=== PATIENT | female | born 1970 | race Caucasian/White ===

== ENCOUNTER → 2020-01-06 11:59 | Outpatient (CLI) | payer OTHER, SELFPAY ==
--- NOTE | ~2020-01-06 | XR_ITS ---
EXAMINATION: XR hip LT min 2V DATE: 01/06/2020 12:12 INDICATION: Left hip pain. TECHNIQUE: 2 views of left hip were obtained. COMPARISON: None. FINDINGS: Bone alignment is normal. No fracture. Left hip joint space is normal. IMPRESSION: 1. Normal left hip. Reviewed, dictated and finalized at location A. ESSION SUPERVISOR IMPRESSION: 1. Normal left hip.
== END ==
PROVIDERS: PCP Family Medicine; Visit Provider Physician Assistant
DX: M25.552 Pain in left hip (principal)
CPT/HCPCS: 73502

== ENCOUNTER 2020-06-18 12:00 | Emergency (ER) | payer OTHER, SELFPAY ==
--- NOTE | ~2020-06-18 | XR_ITS ---
EXAMINATION: XR chest 2V DATE: 06/18/2020 12:49 INDICATION: Tachycardia, arrhythmia TECHNIQUE: PA and lateral views of the chest are obtained. COMPARISON: None available FINDINGS: The lungs are free of acute opacities. There is no pleural effusion or pneumothorax. The ca rdiomediastinal silhouette is normal. The visualized bones and soft tissues are unremarkable. IMPRESSION: 1. No acute cardiopulmonary abnormality. Reviewed, dictated and finalized at location A.
[2020-06-18 12:13] VITALS: BP 114/85; PULSE 188; RESP 14; TEMP 37.1; O2SAT 100
[2020-06-18] MEDS: ADENOSINE IV SOLN 6 MG/2 ML VIAL 18 MG (12:16)
[2020-06-18] MEDS: SODIUM CHLORIDE 0.9% IV 1,000 ML 999 ML (12:16)
--- NOTE | 2020-06-18 12:20 | ECG_ITS ---
Measurements Intervals [place] Rate: 93 P: 81 IA: 174 QRS: 73 QRSD: 88 T: 55 QT: 356 QTc: 445 Interpretive Statements SINUS RHYTHM POSSIBLE LEFT ATRIAL ENLARGEMENT INCOMPLETE RIGHT BUNDLE BRANCH BLOCK BASELINE ARTIFACT- II, III, AVR, AVL, AVF, V2 BORDERLINE ECG Electronically Signed On 06-18-2020 17:15:35 CDT by Dung Dobson D.O.
--- NOTE | 2020-06-18 12:32 | PC.NURSE ---
Dr Ha at bedside when 6mg adenosine and 1L of normal saline given per verbal order for arrythmia
--- NOTE | 2020-06-18 12:42 | ECG_ITS ---
Measurements Intervals [place] Rate: 187 P: [place]: 0 QRS: 85 QRSD: 89 T: 26 QT: 234 QTc: 413 Interpretive Statements SUPRAVENTRICULAR TACHYCARDIA BORDERLINE ST ABNORMALITY- ANTEROLAT/INF LEADS ABNORMAL ECG Electronically Signed On 06-18-2020 13:31:35 CDT by Dung Dobson D.O.
[2020-06-18 12:59] LABS: Basophils Absolute Auto 0.1 K/mm3 (0.0-0.1); Basophils Percent Auto 0.4 % (0.2-1.2); Eosinophils Absolute Auto 0.1 K/mm3 (0-0.3); Eosinophils Percent Auto 0.8 % (0-4.4); Hematocrit 39.2 % (37.0-47.0); Hemoglobin 13.3 g/dL (12.0-15.0); Immature Granulocyte Absolute 0.04 K/mm3 (0.00-0.031); Immature Granulocyte Percent A 0.3 % (0-0.5); Lymphocytes Absolute Auto 1.98 K/mm3 (0.9-3.2); Mean Corpuscular HGB Conc 33.9 g/dl (32-36); Mean Corpuscular Hemoglobin 29.8 pg (26-34); Mean Corpuscular Volume 87.7 fl (80-100); Mean Platelet Volume 9.9 fl (7.4-10.4); Monocytes Absolute Auto 0.6 K/mm3 (0.1-0.6); Monocytes Percent Auto 4.8 % (2.6-8.5); Neutrophils Absolute Auto 8.9 K/mm3 (1.3-6.7); Neutrophils Percent Auto 76.7 % (45.5-73.1); Platelet Count Result 309 k/mm3 (150-375); Red Blood Count 4.47 M/mm3 (4.2-5.4); Red Cell Distribution Width 12.9 % (11.5-14.5); White Blood Count 11.7 K/mm3 (4.5-10.0)
[2020-06-18 13:14] LABS: Anion Gap 12.4 mmol/L (7-16); Blood Urea Nitrogen 15 mg/dL (7-17); Calcium 8.8 mg/dL (8.4-10.2); Carbon Dioxide 22 mmol/L (22-30); Chloride 101 mmol/L (98-107); Estimated CRCL calculation 78 ml/min; Estimated Glomerular Filt Rate > 60; Glucose 138 mg/dL (65-105); Potassium 3.4 mmol/L (3.4-5.0); Sodium 132 mmol/L (137-145)
[2020-06-18 13:16] LABS: Magnesium 1.6 mg/dL (1.6-2.3)
[2020-06-18 13:18] VITALS: BP 100/71; PULSE 96; RESP 13; O2SAT 100
[2020-06-18 13:47] LABS: Add Urine Microscopic? NO; Appearance Urine Clear (Clear); Bilirubin Urine Negative (Negative); Blood Urine Negative (Negative); Color Urine Colorless (Yellow); Glucose Urine UA Negative (Negative); Ketones Urine Negative (Negative); Leukocyte Esterase Ur Negative LEU/UL (Negative); Nitrate Urine Negative (Negative); Protein Urine Negative (Negative); Urobilinogen Urine Negative mg/dL (<2.0)
[2020-06-18 13:55] LABS: Specific Grav Ur 1.003 (1.001-1.035)
--- NOTE | 2020-06-18 13:57 | ED.ARRPALP ---
HPI - Arrhythmia/Palpitations General Chief Complaint: Arrhythmia/Palpitations Stated Complaint: rapid heart rate Time Seen by Provider: 06/18/20 12:20 History of Present Illness HPI narrative: Patient is a 50-year-old female who presents ER with heart palpitations. Sudden onset prior to arrival. Reports fluctuations in her heart rate from 70 up to 200 bpm when monitoring on her watch. No chest pain. Feels very anxious and slightly short of breath. Denies fevers or chills or sweats. Has not been taking any exercise supplementation, no known thyroid issues, no new stress. Reports she did get a little bit upset prior to onset of symptoms with the family member but it was not a big fight. Denies any stimulant medication or drinking caffeine today. Related Data Home Medications Medication Instructions Recorded Confirmed No Home Medications 06/18/20 06/18/20 Allergies Allergy/AdvReac Type Severity Reaction Status Date / Time No Known Allergies Allergy Verified 06/18/20 12:24 Review of Systems Review of Systems: All systems reviewed & are unremarkable except as noted in HPI and below Constitutional: Constitutional: Denies chills, Denies fever(s) and Denies weakness ENT: Denies nasal congestion and Denies sore throat Cardiovascular: Cardiovascular: Denies chest pain and Reports rapid heart rate Respiratory: Respiratory: Denies cough, Reports dyspnea and Denies wheezing Gastrointestinal: Gastrointestinal: Denies abdominal pain, Denies nausea and Denies vomiting Psychiatric: Psychiatric: Reports anxiety PMFSH Past Medical History Medical History (Updated 06/18/20 @ 15:05 by Oh Ha MD) Healthy female adult Surgical History Surgical History (Updated 06/18/20 @ 13:59 by Oh Ha MD) No history of previous surgery Social History Social History (Updated 06/18/20 @ 14:00 by Oh Ha MD) Smoking status: Never smoker Exam Narrative: Exam Narrative: GENERAL: Anxious-appearing, well-nourished, and in mild distress. HEAD: Normocephalic, atraumatic. ENT: Mucous membranes moist. CHEST: Clear to auscultation. No respiratory distress. HEART: Tachycardic and regular. Normal peripheral pulses. ABDOMEN: Soft, nontender, nondistended. EXTREMITIES: Normal range of motion. No edema. SKIN: Warm, dry, no rash. NEURO: Alert and oriented x3. PSYCH: Appropriately anxious, normal thought content. Course Course Emergency Course: Patient informed of lab results. Discussed case with Liz Jauregui. Recommends f/u with Dr. Solis on 06/25 a 1:30p. Pt verbalized understanding. No metoprolol per cardiology. Avoid caffiene. Vital Signs Vital signs: Vital Signs Temperature 98.8 F 06/18/20 12:13 Pulse Rate 188 H 06/18/20 12:13 Respiratory Rate 14 06/18/20 12:13 Blood Pressure 114/85 06/18/20 12:13 Pulse Oximetry 100 06/18/20 12:13 Temperature 98.8 F 06/18/20 12:13 Pulse Rate 95 06/18/20 14:09 Respiratory Rate 14 06/18/20 14:09 Blood Pressure 101/60 06/18/20 14:09 Pulse Oximetry 100 06/18/20 14:09 MDM - Arrhythmia/Palpitations Lab Data Result diagrams: 06/18/20 12:39 06/18/20 12:39 Labs: Lab Results 06/18/20 06/18/20 06/18/20 Range/Units 12:39 12:39 12:39 WBC 11.7 H (4.5-10.0) K/mm3 RBC 4.47 (4.2-5.4) M/mm3 Hgb 13.3 (12.0-15.0) g/dL Hct 39.2 (37.0-47.0) % MCV 87.7 (80-100) fl MCH 29.8 (26-34) pg MCHC 33.9 (32-36) g/dl RDW 12.9 (11.5-14.5) % Plt Count 309 (150-375) k/mm3 MPV 9.9 (7.4-10.4) fl Immature Gran % (Auto) 0.3 (0-0.5) % Neut % (Auto) 76.7 H (45.5-73.1) % Lymph % (Auto) 17.0 L (18.3-44.2) % [place] % (Auto) 4.8 (2.6-8.5) % Eos % (Auto) 0.8 (0-4.4) % Baso % (Auto) 0.4 (0.2-1.2) % Lymph # (Auto) 1.98 (0.9-3.2) K/mm3 [place] # (Auto) 0.6 (0.1-0.6) K/mm3 Eos # (Auto) 0.1 (0-0.3) K/mm3 Baso # (Auto) 0.1 (0.0-0.1)
[2020-06-18 14:09] VITALS: BP 101/60; PULSE 95; RESP 14; O2SAT 100
[2020-06-18 14:36] LABS: Free T4 Free Thyroxine Reflex 0.97 ng/dL (0.78-2.19)
[2020-06-18 15:21] VITALS: BP 97/58; PULSE 78; RESP 16; TEMP 36.6; O2SAT 100
[2020-06-18 15:37] LABS: Total Triiodothyronine (T3) 1.16 NG/ML (0.97-1.69)
== END 2020-06-18 15:23 | disposition home or self-care (01) ==
PROVIDERS: Emergency Provider Emergency Medicine; PCP Family Medicine
DX: I47.1 Supraventricular tachycardia (principal); I45.10 Unspecified right bundle-branch block; R94.31 Abnormal electrocardiogram [ECG] [EKG]
CPT/HCPCS: 36415; 71046; 80048; 81003; 83735; 84439; 84443; 84480; 85025; 93005; 99283; J0153; J7030

== ENCOUNTER → 2020-10-24 10:35 | Outpatient (CLI) | payer OTHER, SELFPAY ==
--- NOTE | ~2020-10-24 | MM_ITS ---
EXAMINATION: MM screening [facility] BI w hiral HISTORY: Screening TECHNIQUE: Craniocaudal and mediolateral oblique 3-D tomosynthesis images were obtained and synthetic 2-D images were generated. CAD analysis was submitted and interpreted. COMPARISON: Comparison to multiple prior studies sequentially, with oldest reviewed study dated 01/2014. BREAST PARENCHYMAL COMPOSITION: The breasts are extremely dense, which lowers the sensitivity of mamm ography FINDINGS: There is no evidence of suspicious mass, calcification, or architectural distortion to sugg est malignancy in either breast. There has been no suspicious interval change. IMPRESSION: 1. No mammographic evidence of malignancy. 2. Recommend routine screening mammography in one year. BI-RADS Category 1: Negative Reviewed, dictated and finalized at location A. STRIAL CONTROLLER
== END ==
PROVIDERS: Visit Provider Nurse Practitioner Obstetrics & Gynecology
DX: Z12.31 Encounter for screening mammogram for malignant neoplasm of breast (principal)
CPT/HCPCS: 77063; 77067

== ENCOUNTER → 2022-12-04 11:14 | Outpatient (CLI) | payer OTHER, SELFPAY ==
--- NOTE | ~2022-12-04 | MM_ITS ---
EXAMINATION: MM screening [facility] BI w hiral HISTORY: Screening mammogram TECHNIQUE: Craniocaudal and mediolateral oblique 3-D tomosynthesis images were obtained and synthetic 2-D images were generated. CAD analysis was submitted and interpreted. COMPARISON: 10/24/2020, 05/02/2019, 04/30/2018 BREAST PARENCHYMAL COMPOSITION: The breasts are extremely dense, which lowers the sensitivity of mamm ography. FINDINGS: No suspicious mass, calcification, or architectural distortion are identified in either geraldo ast to suggest malignancy. There has been no suspicious interval change. IMPRESSION: 1. No mammographic evidence of malignancy. 2. Recommend routine screening mammography in one year. BI-RADS Category 1: Negative Reviewed, dictated and finalized at location A. EM SAFETY MANAGER
== END ==
PROVIDERS: PCP Family Medicine; Visit Provider Nurse Practitioner Obstetrics & Gynecology
DX: Z12.31 Encounter for screening mammogram for malignant neoplasm of breast (principal)
CPT/HCPCS: 77063; 77067

== ENCOUNTER → 2023-06-30 10:17 | Outpatient (CLI) | payer OTHER, SELFPAY ==
--- NOTE | ~2023-06-30 | US_ITS ---
EXAMINATION: US abdomen complete DATE: 06/30/2023 10:44 INDICATION: Intra-abdominal and pelvic swelling. Bloating. TECHNIQUE: Multiple grayscale and Doppler ultrasound images of the abdomen were obtained. COMPARISON: None FINDINGS: The visualized portions of the head, body, and tail of the pancreas are normal. Abdominal a refugio is normal in caliber. Inferior vena cava is normal. The liver is normal without focal lesion. Th ere is normal flow in main portal vein. The liver is normal in size. No gallstones or gallbladder wal l thickening. There is no sonographic Perez sign. The common duct is normal and measures 3 mm. The s pleen is normal in size. The kidneys are normal in size. IMPRESSION: 1. Normal complete abdomen ultrasound. Reviewed, dictated and finalized at location A.
== END ==
PROVIDERS: PCP Physician Assistant; Visit Provider Physician Assistant
DX: R19.00 Intra-abdominal and pelvic swelling, mass and lump, unspecified site (principal)
CPT/HCPCS: 76700

== ENCOUNTER 2025-03-18 08:43 | Emergency (ER) | payer OTHER, SELFPAY ==
[2025-03-18] VITALS (12 sets, daily range): BP systolic 122–166; BP diastolic 74–93; PULSE 44–64; RESP 12–16; TEMP 36.6–36.8; O2SAT 98–100
--- NOTE | ~2025-03-18 | CT_ITS ---
EXAMINATION: CT brain wo con DATE: 03/18/2025 11:05 INDICATION: Headache TECHNIQUE: Computed tomography (CT) of the head was performed without intravenous contrast. Sagittal and coronal reconstructions were performed. The mA was adjusted according to patient size. Iterative reconstruction technique was employed. The dose-length product was 605.33 mGy-cm. COMPARISON: None FINDINGS: No acute intracranial hemorrhage, acute infarction or abnormal extra axial fluid collection. There is mild scattered white matter hypoattenuation consistent with chronic small vessel ischemic disease. Ventricles are normal and symmetric. No mass/mass effect. The orbits, paranasal sinuses and mastoid a ir cells are normal. IMPRESSION: 1. Mild scattered white matter hypoattenuation consistent with chronic small vessel ischemic disease. No acute intracranial process. Reviewed, dictated and finalized at location A. IMPRESSION: 1. Mild scattered white matter hypoattenuation consistent with chronic small ve ssel ischemic disease. No acute intracranial process.
--- NOTE | ~2025-03-18 | XR_ITS ---
EXAMINATION: XR chest 1V portable DATE: 03/18/2025 10:54 INDICATION: Chest pain TECHNIQUE: frontal view of the chest was obtained. COMPARISON: Chest radiograph dated 06/18/2020 FINDINGS: The lungs are clear with no focal airspace opacities, pulmonary edema, pleural effusion or pneumothor ax. The cardiomediastinal silhouette is normal. Visualized bones and soft tissues are unremarkable. IMPRESSION: 1. No acute cardiopulmonary disease. Reviewed, dictated and finalized at location A.
--- NOTE | 2025-03-18 08:49 | ECG_ITS ---
Test Date: 2025-03-18 08:58:20 Measurements Intervals [place] Rate: 46 P: 70 HI: 160 QRS: 75 QRSD: 101 T: 69 QT: 481 QTc: 423 Interpretive Statements SINUS BRADYCARDIA POSSIBLE RIGHT VENTRICULAR CONDUCTION DELAY [RSR (QR) IN V1/V2] No previous ECG available for comparison Electronically Signed On 03-18-2025 11:42:17 CDT by Bib Salazar M.D.
[2025-03-18 09:10] LABS: Add Urine Microscopic? YES; Appearance Urine Turbid (Clear); Bacteria Urine None Seen /hpf; Bilirubin Urine Negative (Negative); Blood Urine Negative (Negative); Color Urine Yellow (Yellow); Glucose Urine UA Negative (Negative); Ketones Urine Negative (Negative); Leukocyte Esterase Ur 1+ LEU/UL (Negative); Need Manual Microscopic Reviewed; Nitrate Urine Negative (Negative); Non Pathogenic Casts 0-2; Protein Urine Trace mg/dL (Negative); RBC Urine 0-2 /hpf (0-2); Squamous Epithelial Cell Urine Occasional /hpf (Few); Urobilinogen Urine 0.2 mg/dL (<2.0); WBC Urine 0-5 /hpf (0-3)
[2025-03-18 09:13] LABS: Basophils Percent Auto 0.4 % (0.2-1.2); Eosinophils Absolute Auto 0.1 K/mm3 (0-0.3); Eosinophils Percent Auto 1.1 % (0-4.4); Hematocrit 37.2 % (37.0-47.0); Hemoglobin 11.9 g/dL (12.0-15.0); Immature Granulocyte Absolute 0.02 K/mm3 (0.00-0.031); Immature Granulocyte Percent A 0.3 % (0-0.5); Lymphocytes Absolute Auto 1.73 K/mm3 (0.9-3.2); Lymphocytes Percent Auto 23.5 % (18.3-44.2); Mean Corpuscular Hemoglobin 29.5 pg (26-34); Mean Corpuscular Volume 92.1 fl (80-100); Mean Platelet Volume 9.8 fl (7.4-10.4); Monocytes Absolute Auto 0.5 K/mm3 (0.1-0.6); Monocytes Percent Auto 7.3 % (2.6-8.5); Neutrophils Percent Auto 67.4 % (45.5-73.1); Platelet Count Result 265 k/mm3 (150-375); Red Blood Count 4.04 M/mm3 (4.2-5.4); Red Cell Distribution Width 13.5 % (11.5-14.5); White Blood Count 7.4 K/mm3 (4.5-10.0)
[2025-03-18 09:24] LABS: Alanine Aminotransferase 30 U/L (6-35); Albumin Level 4.1 g/dL (3.5-5.1); Alkaline Phosphatase 86 U/L (38-126); Anion Gap 3 mmol/L (4-12); Aspartate Amino Transferase 33 U/L (14-36); Bilirubin,Total 0.9 mg/dL (0.2-1.3); Blood Urea Nitrogen 21 mg/dL (7-17); Calcium 8.8 mg/dL (8.4-10.2); Carbon Dioxide 32 mmol/L (22-30); Chloride 101 mmol/L (98-107); Estimated CRCL calculation 79 ml/min; Estimated Glomerular Filt Rate > 60; Glucose 131 mg/dL (65-110); Lipase 34 U/L (23-300); Potassium 3.3 mmol/L (3.4-5.0); Sodium 136 mmol/L (137-145)
[2025-03-18 09:35] LABS: Troponin I < 0.012 ng/mL (0.000-0.034)
[2025-03-18 09:51] LABS: Influenza A QL RT-PCR Negative (Negative); Influenza B QL RT-PCR Negative (Negative); SARS-CoV-2 RNA PCR Negative (Negative)
--- NOTE | 2025-03-18 10:22 | ED.NAVMDI ---
HPI - Nausea/Vomiting/Diarrhea General Chief complaint: Nausea/Vomiting/Diarrhea Stated complaint: I'm really sick Time Seen by Provider: 03/18/25 09:05 Source: patient Mode of arrival: ambulatory Limitations: no limitations History of Present Illness HPI Narrative: 55 years old white female came from home with her by private car complaining of not feeling good, palpitation, tired, weak, chest tightness, numbness of the left side of her body, for the last 2 days. Patient developed headache with nausea 1 hour prior to arrival. Currently Patient denies any fever, chills, vomiting, diarrhea, constipation, abdominal pain or chest pain. Just headache. Patient reports a lot of stress lately building a house, family history of anxiety and depression She does not smoke or drink or use drugs. Patient had history of allergic reaction recently finished prednisone yesterday. Related Data Allergies Allergy/AdvReac Type Severity Reaction Status Date / Time No Known Allergies Allergy Verified 03/13/25 15:07 Review of Systems Review of Systems: All systems reviewed & are unremarkable except as noted in HPI and below PMFSH Past Medical History Medical History Healthy female adult Surgical History Surgical History No history of previous surgery Family History Family History Father Alcoholic CHF (congestive heart failure) Mother No problems noted. Social History Social History Smoking status: Never smoker Alcohol intake: never Substance use: never Substance use type: does not use Lack of Transportation: No Lack of Food: Never True Current Housing: I Have Housing Concerned About Future Housing: No Difficulty Paying Gas/Electric Bills: No Difficulty Paying for Meds: No Currently Unemployed: No Education: Bachelor's Degree Difficulty w/ Childcare or Family Care: No Living arrangements: with family Gender identity (if verbalized by the patient): Female Exam Narrative: General appearance: Well-developed, well-nourished, looks depressed Skin: Normal color Head: Normocephalic, nontraumatic Eyes: Clear conjunctiva ENT: Oropharynx normal, ears normal, nose normal Neck: Supple, nontender Chest and respiratory: Airway patent, no respiratory distress, no accessory muscle use Heart: Regular rate/rhythm Abdomen: Soft, nontender, no organomegaly, quiet bowel sounds Vascular: Normal peripheral pulses, normal capillary refill. Musculoskeletal: Normal range of motion, nontender back Neurologic: Alert and oriented ?3, PORTABLE POWER TOOL REPAIRER is normal as tested, no gross motor deficit Course Vital Signs Vital signs: Vital Signs Pulse Rate 55 L 03/18/25 08:54 Respiratory Rate 12 03/18/25 08:54 Blood Pressure 155/77 H 03/18/25 08:54 Pulse Oximetry 100 03/18/25 08:54 Temperature 36.6 C 03/18/25 10:00 Pulse Rate 49 L 03/18/25 11:30 Respiratory Rate 14 03/18/25 11:30 Blood Pressure 146/79 H 03/18/25 11:30 Pulse Oximetry 100 03/18/25 11:30 Oxygen Delivery Room Air 03/18/25 09:14 MDM - Nausea/Vomiting/Diarrhea MDM Narrative Medical decision making narrative: Patient came to the ED with multiple symptoms, Vital signs showing blood pressure 155/77, heart rate 55 otherwise within normal limit Physical examination showing a depressed patient, otherwise insignificant Differential diagnosis include anxiety like symptoms, electrolyte imbalance, dehydration, tension headache Blood workup today includes CBC, CMP TSH showed potassium 3.3 otherwise within normal limit Urinalysis showed 1+ leukocyte Estrace Chest x-ray showed no acute abnormality CT head without contrast showed no acute abnormalities Diagnosis stress like symptoms Patient received IV normal saline, Compazine, Benadryl, Ativan with remarkable improvement. The pt was discharged to home.the pt,s condition upon discharge was fair,education was provided to the pt in reference to the final impression,discharge study results,treatment,prognosis and need for follow up . Differential Diagnosis Differential diagnosis: Likely other (As above) Medical Records Attestation: I reviewed the patient's medical records. Lab Data Attestation: I reviewed the patient's lab results. 03/18/25 09:04 03/18/25 09:04 Labs: Lab Results 03/18/25 03/18/25 03/18/25 Range/Units 08:52 09:04 09:08 WBC 7.4 (4.5-10.0) K/mm3 RBC 4.04 L (4.2-5.4) M/mm3 Hgb 11.9 L (12.0-15.0) g/dL Hct 37.2 (37.0-47.0) % MCV 92.1 (80-100) fl MCH 29.5 (26-34) pg MCHC 32.0 (32-36) g/dl RDW 13.5 (11.5-14.5) % Plt Count 265 (150-375) k/mm3 MPV 9.8 (7.4-10.4) fl Immature Gran % (Auto) 0.3 (0-0.5) % Neut % (Auto) 67.4 (45.5-73.1) % Lymph % (Auto) 23.5 (18.3-44.2) % [place] % (Auto) 7.3 (2.6-8.5) % Eos % (Auto) 1.1 (0-4.4) % Baso % (Auto) 0.4 (0.2-1.2) % Lymph # (Auto) 1.73 (0.9-3.2) K/mm3 [place] # (Auto) 0.5 (0.1-0.6) K/mm3 Eos # (Auto) 0.1 (0-0.3) K/mm3 Baso # (Auto) 0.0 (0.0-0.1) K/mm3 Abs Immat Gran (auto) 0.02 (0.00-0.031) K/mm3 Absolute Neuts (auto) 5.0 (1.3-6.7) K/mm3 Absolute Nucleated RBC 0.000 (0.0-0.012) K/mm3 Nucleated RBC % 0.0 (0.0-0.2) % Sodium 136 L (137-145) mmol/L Potassium 3.3 L (3.4-5.0) mmol/L Chloride 101 (98-107) mmol/L Carbon Dioxide 32 H (22-30) mmol/L Anion Gap 3 L (4-12) mmol/L BUN 21 H (7-17) mg/dL Creatinine 0.55 L (0.7-1.0) mg/dL Estim Creat Clear Calc 79 ml/min Estimated GFR > 60 (59 - ) Glucose 131 H (65-110) mg/dL Calcium 8.8 (8.4-10.2) mg/dL Total Bilirubin 0.9 (0.2-1.3) mg/dL AST 33 (14-36) U/L ALT 30 (6-35) U/L Alkaline Phosphatase 86 (38-126) U/L Troponin I < 0.012 (0.000-0.034) ng/mL Total Protein 7.0 (6.3-8.2) g/dL Albumin 4.1 (3.5-5.1) g/dL Lipase 34 (23-300) U/L TSH (0.465-4.680) uIU/mL Urine Color Yellow (Yellow) Urine Appearance Turbid H (Clear) Urine pH 8.0 (5.0-9.0) Ur Specific [place] 1.020 (1.001-1.035) Urine Protein Trace (Negative) mg/dL Urine Glucose (UA) Negative (Negative) mg/dL Urine Ketones Negative (Negative) mg/dL Ur Blood (Man) Negative (Negative) Urine Nitrate Negative (Negative) Urine Bilirubin Negative (Negative) Urine Urobilinogen 0.2 (<2.0) mg/dL Add Ur Microanalysis Reviewed Leukocyte Esterase Rfl 1+ H (Negative) POLY/UL Urine RBC 0-2 (0-2) /hpf Urine WBC 0-5 (0-3) /hpf Ur Squamous Epith Cells Occasional (Few) /hpf Urine Bacteria None seen /hpf Urine Casts 0-2 Influenza A (RT-PCR) (Negative) Influenza B (RT-PCR) (Negative) SARS-CoV-2 RNA (RT-PCR) (Negative) 03/18/25 Range/Units 09:08 WBC (4.5-10.0) K/mm3 RBC (4.2-5.4) M/mm3 Hgb (12.0-15.0) g/dL Hct (37.0-47.0) % MCV (80-100) fl MCH (26-34) pg MCHC (32-36) g/dl RDW (11.5-14.5) % Plt Count (150-375) k/mm3 MPV (7.4-10.4) fl Immature Gran % (Auto) (0-0.5) % Neut % (Auto) (45.5-73.1) % Lymph % (Auto) (18.3-44.2) % [place] % (Auto) (2.6-8.5) % Eos % (Auto) (0-4.4) % Baso % (Auto) (0.2-1.2) % Lymph # (Auto) (0.9-3.2) K/mm3 [place] # (Auto) (0.1-0.6) K/mm3 Eos # (Auto) (0-0.3) K/mm3 Baso # (Auto) (0.0-0.1) K/mm3 Abs Immat Gran (auto) (0.00-0.031) K/mm3 Absolute Neuts (auto) (1.3-6.7) K/mm3 Absolute Nucleated RBC (0.0-0.012) K/mm3 Nucleated RBC % (0.0-0.2) % Sodium (137-145) mmol/L Potassium (3.4-5.0) mmol/L Chloride (98-107) mmol/L Carbon Dioxide (22-30) mmol/L Anion Gap (4-12) mmol/L BUN (7-17) mg/dL Creatinine (0.7-1.0) mg/dL Estim Creat Clear Calc ml/min Estimated GFR (59 - ) Glucose (65-110) mg/dL Calcium (8.4-10.2) mg/dL Total Bilirubin (0.2-1.3) mg/dL AST (14-36) U/L ALT (6-35) U/L Alkaline Phosphatase (38-126) U/L Troponin I < 0.012 (0.000-0.034) ng/mL Total Protein (6.3-8.2) g/dL Albumin (3.5-5.1) g/dL Lipase (23-300) U/L TSH 2.400 (0.465-4.680) uIU/mL Urine Color (Yellow) Urine Appearance (Clear) Urine pH (5.0-9.0) Ur Specific [place] (1.001-1.035) Urine Protein (Negative) mg/dL Urine Glucose (UA) (Negative) mg/dL Urine Ketones (Negative) mg/dL Ur Blood (Man) (Negative) Urine Nitrate (Negative) Urine Bilirubin (Negative) Urine Urobilinogen (<2.0) mg/dL Add Ur Microanalysis Leukocyte Esterase Rfl (Negative) POLY/UL Urine RBC (0-2) /hpf Urine WBC (0-3) /hpf Ur Squamous Epith Cells (Few) /hpf Urine Bacteria /hpf Urine Casts Influenza A (RT-PCR) Negative (Negative) Influenza B (RT-PCR) Negative (Negative) SARS-CoV-2 RNA (RT-PCR) Negative (Negative) Imaging Data Radiologist's impression: Impressions Chest X-Ray 03/18/25 11:09 IMPRESSION: 1. No acute cardiopulmonary disease. Head CT 03/18/25 11:11 IMPRESSION: 1. Mild scattered white matter hypoattenuation consistent with chronic small vessel ischemic disease. No acute intracranial process. Critical Care Time Critical Care Time Critical Care Time: No Discharge Plan Discharge Clinical Impression: Headache, Stress and adjustment reaction Patient Disposition: Home Condition: Stable Instructions: Stress (ED) Additional Instructions: Return if symptoms are worsening , call your family physician for appointment, take Tylenol as as needed for aches and pain, continue home medications. Patient Language: Kiswahili Prescriptions: No Action methylprednisolone [Medrol (Luis)] 4 mg tablets,dose pack See Rx Instructions PO PER PKG DIR Qty: 21 0RF Rx Instructions: PO PER PKG DIR hydroxyzine HCl 25 mg tablet 25 mg PO BID PRN (Reason: itching) Qty: 60 0RF lidocaine HCl [Lidocaine Viscous] 2 % solution 1 applic mucous membrane BID Qty: 100 1RF epinephrine [EpiPen] 0.3 mg/0.3 mL auto-injector 0.3 mg IM ONCE Qty: 1 0RF Rx Instructions: as a single dose; may repeat once Follow-up/Referrals: Delon Coats MD [Primary Care Provider] -
[2025-03-18] MEDS: diphenhydrAMINE HCl INJ 50 MG/ML VIAL 25 MG IV PUSH (10:26)
[2025-03-18] MEDS: PROCHLORPERAZINE EDISYLATE 10 MG/2 ML VIAL IV PUSH (10:26)
[2025-03-18] MEDS: SODIUM CHLORIDE 0.9% IV 1,000 ML 999 ML IV CONT (10:27)
[2025-03-18 11:16] LABS: Troponin I < 0.012 ng/mL (0.000-0.034)
[2025-03-18] MEDS: POTASSIUM CHLORIDE 20 MEQ PACKET (FOR LIQUID) 40 MEQ PO (11:47)
[2025-03-18] MEDS: KETOROLAC 30 MG/ML VIAL (*BKC) IV PUSH (11:48)
[2025-03-18] MEDS: LORazepam INJ (*CRX) 2 MG/ML VIAL 0.5 MG IV PUSH (13:05)
--- OUTSIDE RECORDS SUMMARY | 2025-03-18 15:57 | XMS_ITS | Data Portability ---
Author Organization [facility], [facility]) Address [address] [address] Assessment Encounter Date Assessment Date Assessment LastModified by Organization Details LastModified Time 06/19/2023 06/19/2023 53 y/o female with chronic venous insufficiency and CEAP grade 2 on the right and 2 on the left. VCSS score is 4. I am concerned that the symptoms may progress over time. She states her symptoms are overall mild in nature and has not worn compression therapy on a consistent basis. I have recommended to her to wear thigh high compression stockings on a more regular basis. Patient will be scheduled for follow-up for reassessment after a trial of compression and conservative therapy. I spent a total of 45 minutes with the patient. The time was spent reviewing the chart discussing with patient and/or family and forming a treatment plan [email or web address] Not available 06/20/2023 18:42:51 Plan of Treatment Reminders Order Date Submit Date Provider Last Modified By Organization Details Last Modified Time Details Appointments None record ed. Lab None record ed. Referral None record ed. Procedures None record ed. Surgeries None record ed. Imaging None record ed. Medication Orders None record ed. Patient TargetsNo targets recorded. Patient InstructionsNo instructions recorded. Reason for Referral None Reported. Procedures Surgical History Date Name Laterality Status Provider Name and Address Organization Details Recorded Time 12/23/19 20 Visual sclerotherapy procedure completed Cheryl Christiano [employer] [employer] [facility] 12/23/2019 12:37:56 04/28/20 [address] [facility] and 12/23/2019 12:38:04 Imaging Results None recorded. Procedure Notes None recorded. Medical Equipment None Reported. Allergies No known drug allergies Medications Name Sig Start Date Stop Date Status Note LastModified by Organization Details LastModified Time itraconazole 100 mg capsule TAKE 2 CAPSULES BY MOUTH TWICE DAILY FOR 1 WEEK OUT OF THE MONTH FOR 3 MONTHS active Not Available Not Available No t Available Paxlovid 300 mg (150 mg x 2)-100 mg tablets in a dose pack FOLLOW PACKAGE DIRECTIONS active Not Available Not Available N ot Available Vitals Date Recorded Body height Body mass index (BMI) Body weight Heart rate Systolic blood pressure Diastolic blood pressure Provider Name and Address Organization Details Last Updated DateTime 0 165.1 cm 19.3 kg/m2 67896.7 1 g 84 /min 120 mm[Hg] 76 mm[Hg] Cheryl Alvarado [employer] [facility] [employer] and 0 13:14:28 Date Recorded Systolic blood pressure Diastolic blood pressure Provider Name and Address Organization Details Last Updated DateTime 06/19/2023 111 mm[Hg] 69 mm[Hg] Meseret Lin [employer] [facility] [employer] and 06/19/2023 14:09:14 Social History Question Answer Notes LastModified by Organizat ion Details LastModified Time Tobacco Smoking Status Former Smoker Not Available [employer] 09/18/2020 03:44:16 What Is Your Level Of Alcohol Consumption? Occasional [id number] Information not available 09/18/2020 Do You Or Have You Ever Used E-cigarettes Or Vape? Never Used Electronic Cigarettes [id number] Information not available 09/18/2020 What Is The Highest Grade Or Level Of School You Have Completed Or The Highest Degree You Have Received? NH33033-0 [id number] Information not available 09/18/2020 What Is Your Occupation? Homemaker [id number] Information not available 09/18/2020 Live Alone Or With Others? With Others Information not available 12/23/2019 What Was The Date Of Your Most Recent Tobacco Screening? 06/19/2023 Information not available 06/19/2023 Do You Or Have You Ever Used Smokeless Tobacco? Never Used Smokeless Tobacco [id number] Information not available 09/18/2020 How Much Tobacco Do You Smoke? No [id number] Information not available 09/18/2020 How Many Years Have You Smoked Tobacco? 14 Information not available 06/19/2023 Sex: Unknown Functional Status None recorded. Mental Status None recorded. Family History Nothing Reported. Medical History Condition Response Anxiety Disorder N Varicose Veins N Anticoagulation therapy N Diabetes N Coronary Artery Disease N Bleeding Disorder N Hyperlipidemia N Cancer N Stroke N Asthma N COPD N Pacemaker N Clotting Disorder N Anemia N Neurologic Disorder N Hepatitis N Genitourinary Disease N Heart Disease N Ulcers N Gastrointestinal Disease N Pulmonary Embolism N Deep Vein Thrombosis N Hypertension N Kidney Disease N Gynecological History Statement/Question Response N Light 02/28/2019 Sexually Active? Y N N Duration of Flow (days) 3 04/28/2019 N Current Control Method Partner Vas ectomy Obstetrics History GPAL:G 0 P 0 0 0 0 Past Encounters Encounter ID Performer Location Encounter Start Date Encounter Closed Date Diagnosis/Indication Diagnosis SNOMED-CT Code Diagnosis ICD10 Code Diagnosis Note [id number] [facility] [address] [place] [address] 5 12/23/2019 12:00:53 12/23/2019 13:24:02 [facility] 620400712 I78.1 [id number] [place] [address] 06/19/2023 12:56:28 06/22/2023 09:15:21 [employer] [facility] 627925701 I78.1 Varicose v eins of lower extremity 67310005 I83.893 Health Concerns Section Related Observation LastModified by Organization Detai ls LastModified Time None Recorded Concern Status LastModified by Organization Details LastModified Time None Recorded Advance Directives Directive None Recorded Payers Encounter Date Sequence Insurance Name Policy Number Policy Milian Covered Member ID Milian Member ID Guarantor Name 12/23/2019 2 *SELF PAY* Mariaelena Reyes 06/19/2023 1 [facility] Marlin Reyes [id number] Marlin Reyes Notes Date Note Type Note Provider Name and Address Organization Details Recorded Time 3 text/html Varicose Vein or Venous insufficiencyReported bypatient.Location:[place] Quality:aching;throbbing;d ull;occasional; worse at night; She states her symptoms are overall mild in nature. Associated Symptoms:numbness;tingling ;throbbing Severity:intermittent Onset:5 years Context:She reports she has not worn compression therapy on a regular basis; only here and there. Alleviating Factors:elevation Aggravating Factors:prolonged standing functional status(normal) activities of daily living; (normal) physical disability: affecting ability to work sleepsleep disturbances: insomnia: difficulty falling asleep: [place] [id number] [facility], [address], [address], [facility] 06/20/2023 18:43:43 OBGyn Episode No OBEpisode recorded.
--- OUTSIDE RECORDS SUMMARY | 2025-03-18 15:57 | XMS_ITS | Clinical Summary ---
Author Organization [facility] Address [address] [place] [address] Care Team Providers Care Quality Assurance Inspector Name Role Phone Unavailable Primary Care Provider Unavailabl e Social History Tobacco Use Types Packs/Day Years Used Date Smoking Tobacco: Never Assessed Comments Unknown Sex and Gender Information Value Date Recorded Sex Assigned at Not on file Legal Sex Female 7:25 PM CDT Gender Identity Not on file Sexual Orientation Not on file Plan of Treatment Health Maintenance Due Date Last Done Comments Cervical Cancer Screening Pa p Smear (Age 30 to 64) Every 3 Years 1970 Colorectal Cancer Screening Colonoscopy (10 Years) 1970 Annual Physical 1973 Hepatitis C 02/19/1988 DTaP, Tdap and Td Vaccines ( 1 - Tdap) 1989 Hepatitis B Vaccines (1 of 3 - 19+ 3-dose series) 1989 Cervical Cancer Screening Pa p with HPV Testing (Age 30 to 64) Every 5 Years 02/19/2000 Cervical Cancer Screening with HPV 02/19/2000 Mammogram Screening 2010 Pneumococcal Vaccine: 50+ Ye ars (1 of 1 - PCV) 02/19/2020 Zoster Vaccines (1 of 2) 02/19/2020 COVID-19 Vaccine (2023-2 5 season) 2024 Meningococcal B Vaccine Aged Out No l onger eligible based on patient's age to complete this topic Meningococcal Vaccine Aged Out No chelsea joelle eligible based on patient's age to complete this topic RSV Immunizations Under 20 Months Aged Out No longer eligible based on patient's age to complete this topic
--- OUTSIDE RECORDS SUMMARY | 2025-03-18 15:57 | XMS_ITS | Clinical Summary ---
Author Organization [facility] [address] Address [address] [place] [address] Care Team Providers Care School Bus Attendant Name Role Phone Delon Coats MD Primary Care Provider [phone] Allergies No known active allergies Medications multivitamin-ca lcium carb tablet,chewable Indications:Vit dumont Deficiency Prevention Take 1 capsule by mouth every morning Active triamcinolone (KENALOG) 0.1 % ointmentIndicat ions:skin rash Apply 1 application topically as needed 0 Active acetaminophen (TYLENOL) 500 mg tabletIndicatio ns:Pain Take 1,000 mg by mouth every 6 (six) hours as needed for pain Active Active Problems Problem Noted Date Diagnosed Date Abnormal stress test 07/30/2020 Hypokalemia 06/25/2020 Hypomagnesemia 06/25/2020 Atypical chest pain 06/25/2020 SVT (supraventricular tachycardia) 06/25/2020 Surgical History Surgery Date Site/Laterality Comments BREAST LUMPECTOMY 11/16/2001 - 11/15/2002 Medical History Medical History Date Comments SVT (supraventricular tachycardia) Breast mass 2001 Family History Medical History Relation Name Comments No Known Problems Brother No Known Problems Father No Known Problems Mother Diabetes Mother's Brother Heart disease Mother's Brother No Known Problems Sister Relation Name Status Comments Brother Alive Father Alive Mother Alive Mother's Brother Sister Alive Social History Tobacco Use Types Packs/Day Years Used Date Smoking Tobacco: Former Cigarettes 1 17.6 1 988 - 06/25/2005 Smokeless Tobacco: Never Alcohol Use Standard Drinks/Week Comments Yes 1 (1 standard drink = 0.6 oz pur e alcohol) rare Personal Safety Answer Date Recorded Getting School Help Needed Not on file 01/29 Comments Unknown Sex and Gender Information Value Date Recorded Sex Assigned at Not on file Legal Sex Female 7:44 AM EXHAUST MACHINE OPERATOR Gender Identity Not on file Sexual Orientation Not on file Obstetrics History Last Filed Vital Signs Vital Sign Reading Time Taken Comments Blood Pressure 121/71 09/28/2020 11:16 AM EXHAUST MACHINE OPERATOR Pulse 69 09/28/2020 11:16 AM EXHAUST MACHINE OPERATOR Temperature 36.7 C (98.1 F) 09/28/2020 11:16 AM EXHAUST MACHINE OPERATOR Respiratory Rate 14 08/31/2020 5:10 PM CDT Oxygen Saturation 100% 09/28/2020 11: 16 AM EXHAUST MACHINE OPERATOR Inhaled Oxygen Concentration - - Weight 54.3 kg (119 lb 12.8 oz) 020 11:16 AM EXHAUST MACHINE OPERATOR Height 167.6 cm (5' 6 ) 09/28/2020 11:1 6 AM EXHAUST MACHINE OPERATOR Body Mass Index 19.34 09/28/2020 11:16 AM EXHAUST MACHINE OPERATOR Plan of Treatment Not on file Medical Devices Implanted Type Area Aircraft Lay Out Worker Device Identifier Shelf Expiration Date Model / Serial / Lot [employer] [id number] System 6-12fr Mvp Venous Closure Vascade - [id number] Implanted:Qty: 1 on 08/31/2020 by Rajni Muniz MD at [facility] [employer] 06/28/2022 [id number] / / [id number] Description:VASCADE MVP [employer] [id number] Device Closure Vascade Od5 Fr Femoral Artery - [id number] Implanted:Qty: 1 on 08/31/2020 by Rajni Muniz MD at [facility] [employer] 09/27/2021 [id number] / / [id number] Description:VASCADE [employer] [id number] Device Closure Vascade Od5 Fr Femoral Artery - [id number] Implanted:Qty: 1 on 08/31/2020 by Rajni Muniz MD at [facility] [employer] 06/13/2021 [id number] [id number] / / [id number] Description:VASCADE [employer] [id number] System 6-12fr Mvp Venous Closure Vascade - [id number] Implanted:Qty: 1 on 08/31/2020 by Rajni Muniz MD at [facility] [employer] 05/22/2022 [id number] / / [id number] 0A Description:VASCADE MVP Insurance [facility] CHOICE PLUS [place] [id number] [facility] [employer] PL[employer] Care Teams School Bus Attendant Relationship Specialty Start Date End Date Delon Coats MD [address] [place] [address] EMELYN BOLTON [id number] PCP - General Family Medicine 06/18/20
--- OUTSIDE RECORDS SUMMARY | 2025-03-18 15:57 | XMS_ITS | Encounter Summary ---
Author Organization [facility] Address [address] [place] [address] Care Team Providers Care Edge Grinder Machine Name Role Phone Unavailable Primary Care Provider Unavailabl e Encounter Details Date Type Department Care Team (Late st Contact Info) Description 04/23/2019 Abstract SFL CONVERSION [address] [place] [address] , Generic Conversion, Social History Tobacco Use Types Packs/Day Years Used Date Smoking Tobacco: Never Assessed Comments Unknown Sex and Gender Information Value Date Recorded Sex Assigned at Not on file Legal Sex Female 7:25 PM CDT Gender Identity Not on file Sexual Orientation Not on file documented as of this encounter Plan of Treatment Not on file documented as of this encounter Visit Diagnoses Not on filedocumented in this encounter
--- OUTSIDE RECORDS SUMMARY | 2025-03-18 15:57 | XMS_ITS | Data Portability ---
Author Organization [facility] [place] Address [address] [place] [address] Care Team Providers Care Leguillon Debeader Name Role Phone SINDY SHANE Primary Care Provider [phone] Assessment Encounter Date Assessment Date Assessment LastModified by Organization Details LastModified Time 08/01/2020 08/01/2020 Annual gynecological exam performed. Patient will come back in a year unless there are new symptoms. [email or web address] Not available 08/01/2020 11:06:10 08/22/2021 08/22/2021 Annual gynecological exam performed. Patient will come back in a year unless there are new symptoms. Not available 08/22/2021 13:35:06 09/09/2022 09/09/2022 Annual gynecological exam performed. Patient will come back in a year unless there are new symptoms. Not available 09/09/2022 12:56:37 09/16/2023 09/16/2023 Annual gynecological exam performed. Patient will come back in a year unless there are new symptoms. Not available 09/16/2023 12:43:56 Plan of Treatment Reminders Order Date Submit Date Provider Last Modified By Organization Details Last Modified Time Details Appointments None recorded. Lab vitamin D, 25-hydroxy, total, serum 2022 023 [email or web address] [facility] (Lab), [address], [place], [address], 4 16:21:11 HbA1c (hemoglobin A1c), blood [address] (Lab), [address], [place], [address], 4 16:21:10 lipid panel, blood [address] (Lab), [address], [place], [address], 4 16:21:10 CBC w/ auto diff [address] (Lab), [address], [place], [address], 4 16:21:10 CMP, serum or plasma [address] (Lab), [address], [place], [address], 4 16:21:10 TSH, serum or plasma [address] (Lab), [address], [place], [address], 4 16:21:11 CMP, serum or plasma 2020 021 [facility] (Lab), [address], [place], [address], 1 03:56:15 CBC w/ auto diff 2020 021 [facility] (Lab), [address], [place], [address], 1 03:56:14 lipid panel, blood 2020 021 [facility] (Lab), [address], [place], [address], 1 03:56:14 vitamin D, 25-hydroxy, total, serum 2020 021 [facility] (Lab), [address], [place], [address], 1 03:56:16 HbA1c (hemoglobin A1c), blood 2020 [facility] (Lab), [address], [place], [address], 1 03:56:16 TSH, serum or plasma 2020 [facility] (Lab), [address], [place], [address], 1 03:56:15 vitamin B12 + folate, serum or blood 2020 [facility] (Lab), [address], [place], [address], 1 03:56:15 Referral gastroenter ologist referral 2019 020 [email or web address] Not available 0 12:26:00 Procedures None recorded. Surgeries None recorded. Imaging MAMMO, screening, bilateral [address], [address], [place] [address], [place], [address], 4 16:15:48 Medication Orders nystatin-tr iamcinolone 100,000 unit/gram-0 .1 % topical ointment 2022 023 [id number], [address], [place], [place], [id number], 3 12:48:32 nystatin-tr iamcinolone 100,000 unit/gram-0 .1 % topical ointment 2020 021 [place] [address] [facility]40555, [address], [place], [place], [id number], 3 12:41:57 triamcinolo ne acetonide 0.1 % topical ointment 2019 020 [id number], [address], [place], [place], [id number], 2 13:00:26 Patient TargetsNo targets recorded. Patient Instructions Encounter Date Encounter Id Patient Instructions Last Modified By Organization Details Last Modified Time 08/01/2020 [email or web address] Not available 11:38:14 Reason for Referral Communications Department Chair Referral for Screening colonoscopy Screening age 50yo Referring Physician: Sandy Rojas, STATION TENDER, Encounter Date: 08/01/2020 Results Created Date Observation Date Name Description Value Unit Range Abnormal Flag Note LastModifiedBy Organization Detail LastModifiedTime 08/01/20 20 08/03/2020 pap, LB Pap test thin prep Negati ve for Intrae pithel ial Lesion or Malign lidia normal ACCES THOMAS #: [id number] Sourc e: Cervi rukhsana/E ndoce rvica l LMP: 11/16 Date Taken : 08/01 Speci men Type: ThinP rep Vial Date Repor rosangela: 2019 Clini rukhsana Data: Cytot ech: Lydnon Tovar y, CT( CP) Date Repor rosangela: 2019 Speci men Adequ acy: Satis facto ry for evalu ation Endoc ervic al/tr ansfo rmati on zone compo nent prese nt Gener al Categ oriza tion: NEGAT DAYLIN FOR INTRA EPITH ELIAL LESIO N OR MALIG EDNA This speci men has been nydia zed by the ThinP rep Imagi ng Syste m, an inter activ e compu ter syste m which kyle ts the lab in the [facility]iew of ThinP rep Pap Test slide sLaurel Booker wing imagi ng, the slide was revie wed by a Cytot echno logis t and/o r Patho logis t. D N A A S S A Y S R E P O R T TEST NAME RESUL TS ----- ---- ----- -- HPV High Risk Scree n (TMA) ThinP rep Vial The human papil lomav irus (HPV) High Risk Scree n is an FDA-a pprov ed in-vi tro ampli fied nucle ic acid test for the quali tativ e detec tion of E6/E7 viral mRNA. Resul ts shoul d be corre lated with patie nt prese ntati on, histo ry, cervi rukhsana cytol ogy and other clini rukhsana and labor atory findi ngs. See https ://[employer]/s ites/ defau lt/fi les 018-0 AW- 97483 _002_ 01.pd f for furth er infor matio n. Test perfo rmed by [employer], d/[employer]/a [facility], [address], [place] [address] , Mery Beck ra, , Labor atory Direc tor. HPV High Risk *HPV NOT DETEC ROSANGELA (TYPE S 16, 18, 31, 33, 35, 39, 45, 51, 52, 56, 58, 59, 66, 68) *HPV: The human papil lomav irus (HPV) High Risk Scree n is an FDA-a pprov ed in-vi tro ampli fied nucle ic acid test for the quali tativ e detec tion of E6/E7 viral mRNA. Resul ts shoul d be corre lated with patie nt prese ntati on, histo ry, cervi rukhsana cytol ogy and other clini rukshana and labor atory findi ngs. See https ://[employer]/s ites/ defau lt/fi -0 - 36286 _002_ 01.pd f for furth er infor matio n. Test perfo rmed by [employer], d/b/a [facility], [address], [place] [address] , Mery Beck ra, , Labor atory Direc tor. End of Repor t Techn ical servi sandi provi ded by [facility] [employer] ([employer]), [employer], d/b/a [facility], [address] [place] [address] Silas Gruber MD, Labor FREEjit [facility] tor. Case revedwardo wed and diagn osis rende red at [facility] [employer] ([employer]), [employer], d/b/a [facility], [address] [place] [address] Silas Gruber MD, Labor atorTOMI [employer] Dire tor. CONFI DENTI AL Not Available [facility] ([facility]) [address], [place], [address], 08/03/2020 18:18:27 08/01/20 20 08/02/2020 HPV DNA, high- risk HPV high risk NOT DETECT ED normal Not Available [facility] ([facility]) [address], [place], [address], 08/03/2020 18:18:28 08/30/20 21 08/30/2021 CBC W/DIF F WBC 7.4 10'3/ uL 3.6-10 .2 Not Available [facility] (Lab) [address], [place], [address], 08/31/2021 03:56:13 08/30/20 21 08/30/2021 CBC W/DIF F RBC 4.30 10'6/ uL (based on docume nted legal sex) 4.10-5 .30 Not Available [facility] (Lab) [address], [place], [address], 08/31/2021 03:56:13 08/30/20 21 08/30/2021 CBC W/DIF F HGB 12.9 g/dL (based on docume nted legal sex) 11.9-1 5.8 Not Available [facility] (Lab) [address], [place], [address], 08/31/2021 03:56:13 08/30/2005 0908/30/2021 CBC W/DIF F HCT 40.1 % (based on docume nted legal sex) 37.4-4 8.3 Not Available [facility] (Lab) [address], [place], [address], 08/31/2021 03:56:13 08/30/20 21 08/30/2021 CBC W/DIF F MCV 94.0 fL 82.0-9 9.0 Not Available [facility] (Lab) [address], [place], [address], 08/31/2021 03:56:13 08/30/2008/30/2021 CBC W/DIF F MCH 30.0 pg 27.0-3 3.0 Not Available [facility] (Lab) [address], [place], [address], 08/31/2021 03:56:13 08/30/20 21 08/30/2021 CBC W/DIF F MCHC 32.0 g/dL 32.0-3 6.0 Not Available [facility] (Lab) [address], [place], [address], 08/31/2021 03:56:13 08/30/20 21 08/30/2021 CBC W/DIF F RDW 14.0 % 11.0-1 5.0 Not Available [facility] (Lab) [address], [place], [address], 08/31/2021 03:56:13 08/30/20 21 08/30/2021 CBC W/DIF F plt 322 10'3/ uL 150-45 0 Not Available [facility] (Lab) [address], [place], [address], 08/31/2021 03:56:13 08/30/20 21 08/30/2021 CBC W/DIF F MPV 10.5 fL 9.8-12 .7 Not Available [facility] (Lab) [address], [place], [address], 08/31/2021 03:56:13 08/30/20 21 08/30/2021 CBC W/DIF F NRBC's 0.00 % 0 Not Available [facility] (Lab) [address], [place], [address], 08/31/2021 03:56:13 08/30/20 21 08/30/2021 CBC W/DIF F absolute NRBCs 0.0 10'3/ uL 0 Not Available [facility] (Lab) [address], [place], [address], 08/31/2021 03:56:13 08/30/20 21 08/30/2021 CBC W/DIF F neutrophils 72.0 % 37.0-7 2.0 Not Available [facility] (Lab) [address], [place], [address], 08/31/2021 03:56:13 08/30/20 21 08/30/2021 CBC W/DIF F lymphocytes 20.0 % 16.0-4 8.0 Not Available [facility] (Lab) [address], [place], [address], 08/31/2021 03:56:13 08/30/20 21 08/30/2021 CBC W/DIF F monocytes 6.0 % 4.0-14 .0 Not Available [facility] (Lab) [address], [place], [address], 08/31/2021 03:56:13 08/30/20 21 08/30/2021 CBC W/DIF F eosinophils 1.0 % 0.0-9. 0 Not Available [facility] (Lab) [address], [place], [address], 08/31/2021 03:56:13 08/30/20 21 08/30/2021 CBC W/DIF F basophils 1.0 % 0.0-2. 0 Not Available [facility] (Lab) [address] [place], [address], 08/31/2021 03:56:13 08/30/20 21 08/30/2021 CBC W/DIF F immature granulocytes 0.0 % no define d refere nce range Not Available [facility] (Lab) [address], [place], [address], 08/31/2021 03:56:13 08/30/20 21 08/30/2021 CBC W/DIF F absolute neutrophils 5.3 10'3/ uL 1.1-6. 0 Not Available [facility] (Lab) [address], [place], [address], 08/31/2021 03:56:13 08/30/20 21 08/30/2021 CBC W/DIF F absolute lymphocytes 1.5 10'3/ uL 0.7-3. 4 Not Available [facility] (Lab) [address], [place], [address], 08/31/2021 03:56:13 08/30/20 21 08/30/2021 CBC W/DIF F absolute monocytes 0.4 10'3/ uL 0.3-1. 0 Not Available [facility] (Lab) [address], [place], [address], 08/31/2021 03:56:13 08/30/20 21 08/30/2021 CBC W/DIF F absolute eosinophils 0.0 10'3/ uL 0.0-0. 6 Not Available [facility] (Lab) [address], [place], [address], 08/31/2021 03:56:13 08/30/20 21 08/30/2021 CBC W/DIF F absolute basophils 0.1 10'3/ uL 0.0-0. 1 Not Available [facility] (Lab) [address], [place], [address], 08/31/2021 03:56:13 08/30/20 21 08/30/2021 CBC W/DIF F absolute immature granulocytes 0.00 10'3/ uL 0.00-0 .10 08/31 1:57 AM: P indic ates parti al resul ts on a panel have been relea sed. Addit ional resul ts will follo w. 08/31 1:57 AM: This resul t has been final verif ied. No addit ional or cox ed resul ts are expec rosangela. Not Available [facility] (Lab) [address], [place], [address], 08/31/2021 03:56:13 08/30/20 21 08/30/2021 LIPID PANEL ,AMA (LDL- CALC) total cholesterol 236 mg/dL 0-199 high Not Available [facility] (Lab) [address] [place], [address], 08/31/2021 03:56:14 08/30/2008/30/2021 LIPID PANEL ,AMA (LDL- CALC) triglyceride s 50 mg/dL 0.00-1 50.00 NCEP Refer ence Value s for Trigl yceri zamzam: Vale l: <150 mg/dL Borde rline High: 150 - 199 mg/dL High: 200 - 499 mg/dL Very High: >/= 500 mg/dL Not Available [facility] (Lab) [address] [place], [address], 08/31/2021 03:56:14 08/30/20 21 08/30/2021 LIPID PANEL ,AMA (LDL- CALC) HDL cholesterol 76 mg/dL >40 Not Available [facility] (Lab) [address] [place], [address], 08/31/2021 03:56:14 08/30/2008/30/2021 LIPID PANEL ,AMA (LDL- CALC) LDL cholesterol 150 mg/dL 0-99 high Cutof f value s recom brando d by the Natio nal Blossom stero l Educa tion Progr am: JOSE L ABLE: Blossom stero l <200 mg/dL LDL <100 mg/dL BORDE RLINE : Blossom stero l 200-2 39 mg/dL LDL 101-1 59 mg/dL HIGHE R RISK: Blossom stero l >240 mg/dL LDL >160 mg/dL , HDL <40 mg/dL Not Available [facility] (Lab) [address], [place], [address], 08/31/2021 03:56:14 08/30/20 21 08/30/2021 LIPID PANEL ,AMA (LDL- CALC) non-HDL cholesterol 160 mg/dL no refere nce range A reaso nable goal for non-H DL blossom stero l is one that is 30 mg/dL highe r than the LDL blossom stero l goal. Not Available [facility] (Lab) [address], [place], [address], 08/31/2021 03:56:14 08/30/20 21 08/30/2021 LIPID PANEL ,AMA (LDL- CALC) chol/HDL ratio 3.1 . 0.0-5. 0 Not Available [facility] (Lab) [address] [place], [address], 08/31/2021 03:56:14 08/30/20 21 08/30/2021 CMP(C OMPRE HENSI VE METAB OLIC PANEL ) sodium 139 mmol/ L 133-14 6 Not Available [facility] (Lab) [address] [place], [address], 08/31/2021 03:56:15 08/30/20 21 08/30/2021 CMP(C OMPRE HENSI VE METAB OLIC PANEL ) potassium 3.9 mmol/ L 3.5-5. 1 Not Available [facility] (Lab) [address] [place], [address], 08/31/2021 03:56:15 08/30/20 21 08/30/2021 CMP(C OMPRE HENSI VE METAB OLIC PANEL ) chloride 105 mmol/ L 98-107 Not Available [facility] (Lab) [address] [place], [address], 08/31/2021 03:56:15 08/30/20 21 08/30/2021 CMP(C OMPRE HENSI VE METAB OLIC PANEL ) carbon dioxide 27 mmol/ L 21-31 Not Available [facility] (Lab) [address], [place], [address], 08/31/2021 03:56:15 08/30/20 21 08/30/2021 CMP(C OMPRE HENSI VE METAB OLIC PANEL ) anion gap 7 mmol/ L 4-13 Not Available [facility] (Lab) [address], [place], [address], 08/31/2021 03:56:15 08/30/20 21 08/30/2021 CMP(C OMPRE HENSI VE METAB OLIC PANEL ) blood urea nitrogen 22 mg/dL 7-25 Not Available [facility] (Lab) [address], [place], [address], 08/31/2021 03:56:15 08/30/20 21 08/30/2021 CMP(C OMPRE HENSI VE METAB OLIC PANEL ) creatinine 0.89 mg/dL 0.60-1 .30 Not Available [facility] (Lab) [address], [place], [address], 08/31/2021 03:56:15 08/30/20 21 08/30/2021 CMP(C OMPRE HENSI VE METAB OLIC PANEL ) GFR () 81 mL/mi n/1.7 3_m2 60-300 Not Available [facility] (Lab) [address], [place], [address], 08/31/2021 03:56:15 08/30/20 21 08/30/2021 CMP(C OMPRE HENSI VE METAB OLIC PANEL ) GFR (others) 67 mL/mi n/1.7 3_m2 60-300 Not Available [facility] (Lab) [address], [place], [address], 08/31/2021 03:56:15 08/30/20 21 08/30/2021 CMP(C OMPRE HENSI VE METAB OLIC PANEL ) calcium 9.8 mg/dL 8.3-10 .5 Not Available [facility] (Lab) [address], [place], [address], 08/31/2021 03:56:15 08/30/20 21 08/30/2021 CMP(C OMPRE HENSI VE METAB OLIC PANEL ) glucose 101 mg/dL 70-100 high Not Available [facility] (Lab) [address], [place], [address], 08/31/2021 03:56:15 08/30/20 21 08/30/2021 CMP(C OMPRE HENSI VE METAB OLIC PANEL ) protein, total 6.7 g/dL 6.4-8. 3 Not Available [facility] (Lab) [address], [place], [address], 08/31/2021 03:56:15 08/30/20 21 08/30/2021 CMP(C OMPRE HENSI VE METAB OLIC PANEL ) albumin 4.5 g/dL 3.5-5. 0 Not Available [facility] (Lab) [address], [place], [address], 08/31/2021 03:56:15 08/30/20 21 08/30/2021 CMP(C OMPRE HENSI VE METAB OLIC PANEL ) ALT 12 units /L 9-43 Not Available [facility] (Lab) [address], [place], [address], 08/31/2021 03:56:15 08/30/20 21 08/30/2021 CMP(C OMPRE HENSI VE METAB OLIC PANEL ) alkaline phosphatase 53 units /L 34-104 Not Available [facility] (Lab) [address], [place], [address], 08/31/2021 03:56:15 08/30/20 21 08/30/2021 CMP(C OMPRE HENSI VE METAB OLIC PANEL ) AST 20 units /L 13-39 Not Available [facility] (Lab) [address], [place], [address], 08/31/2021 03:56:15 08/30/20 21 08/30/2021 CMP(C OMPRE HENSI VE METAB OLIC PANEL ) bilirubin, total 0.7 mg/dL 0.2-1. 2 GFR([place] n Ameri can) is repor rosangela as 21% great er than GFR(O ther) . The use of race in kidne y funct ion estim ating equat ions is no longe r recom brando d and may resul t in overe stima tion. In the near futur e an appro ach that disre gards race will be imple mente d. Not Available [facility] (Lab) [address], [place], [address], 08/31/2021 03:56:15 08/30/20 21 08/30/2021 TSH, REFLE X FREE T4 TSH 3.86 uIU/m L 0.30-5 .33 Not Available [facility] (Lab) [address], [place], [address], 08/31/2021 03:56:15 08/30/20 21 08/30/2021 VITAM IN B12 / FOLAT E PANEL vitamin B12 601 pg/mL 180-91 4 Vale l Range : 180-9 14 pg/mL . Indet ermin ate Range : 145-1 80 pg/mL . Defic ient Range : <=145 pg/mL . Not Available [facility] (Lab) [address], [place], [address], 08/31/2021 03:56:15 08/30/20 21 08/30/2021 VITAM IN B12 / FOLAT E PANEL folate, serum >20.0 NG/mL 6.0-20 .0 high Not Available [facility] (Lab) [address], [place], [address], 08/31/2021 03:56:15 08/30/20 21 08/30/2021 VITAM IN D, 25-OH (TOTA L D2/D3 ) vitamin D, 25-hydroxy, total 52.7 NG/mL 30-80 NOTE: Defic iency : <20 ng/mL Insuf ficie ncy: 20-29 ng/mL Optim um Level : 30-80 ng/mL Possi ble Toxic ity: >80 ng/mL Most patie nts with toxic ity have level s >150 ng/mL . Not Available [facility] (Lab) [address], [place], [address], 08/31/2021 03:56:16 08/30/20 21 08/30/2021 HEMOG LOBIN A1C hemoglobin A1C 5.5 % 0-5.6 The Ameri can Diabe daniel Assoc iatio n recom mends that a prima ry goal of thera py shoul d be a HBA1C of < 7% and that physi cians shoul d reeva luate the treat ment regim en in patie nts with HBA1C value s consi stent ly > 8%. <5.7% Vale l 5.7 - 6.4% Incre ased risk for diabe daniel >=6.5 % Diagn ostic of diabe daniel <7.0% Goal of thera py >8.0% Actio n sugge sted Not Available [facility] (Lab) [address], [place], [address], 08/31/2021 03:56:16 09/09/20 22 09/09/2022 IMAGE GUIDE D PAP AND HPV REGAR DLESS image guided Pap, HPV regardless of Pap result SEE RESULT S BELOW CASE REPOR T: Cytol ogy Gynec ologi rukhsana Repor t Case: [id number] Autho florence bajwa Provi robby: Nikunj Goncalves Colle cted: 09/09 1706 PENSIONHOLDER INFORMATION CLERK Order ing Locat ion: [place] Patho logy Recei gavin: 09/10 0831 First Scree n: Strut z, Willi am, CT Rescr een: Sarah Wiley Speci men: Scree zbigniew Pap - Image d, Cervi x STATE MENT OF ADEQU ACY: Satis facto ry for evalu ation Trans forma tion zone compo nent absen t The absen ce of an endoc ervic al compo nent was confi rmed by an addit giovani skinner. FINAL DIAGN OSIS: Negat daylin for Intra epith elial Lesio n or Timmy salmon (NIL) . Elect abeba lange d by Sarah Wiley on 09/15 at 1:31 PM ----- ----- ----- ----- ----- ----- ----- ----- ----- ----- ----- ----- ----- ----- ----- ----- ----- ---- HPV RESUL TS: HPV mRNA E6/E7 : No HPV mRNA Detec rosangela NOTE: This high risk HPV mRNA assay detec ts fourt een high- risk HPV types (16, 18, 31, 33, 35, 39, 45, 51, 52, 56, 58, 59, 66, 68) witho ut diffe renti ation . COMME NT: Note: This speci men was revie wed by a Cytot echno logis t and/o r Patho logis t (as indic ated in this repor t) after evalu ation using the Thinp rep Imagi ng Syste m. CLINI RUKHSANA INFOR MATIO N: Menst rual Statu s: LMP (if appli cable ): Clini rukhsana Histo ry/Pr eviou s Pap: Type of Neopl gianna (if appli cable ): Signi fican t Clini rukhsana Findi ngs: Other Histo ry: Hormo ivan (if appli cable ): PAP EDUCA DYLAN L NOTE: The Pap Test is a scree zbigniew test with an inher ent false negat daylin rate. Liqui d-bas ed sampl ing may decre ase, but will not elimi tree, false negat daylin resul ts. A negat daylin resul t does not precl ude the prese nce and/o r devel opmen t of disea se, since the prese nce of abnor mal cells in the sampl e depen ds on the locat ion of the lesio n and sampl ing techn ique. Katelin nued regul ar angel coy is the best metho d of cance r preve ntion . If repor rosangela cytol ogic findi ng do not corre late with physi rukhsana and/o r histo rical findi ngs, furth er inves tigat ion is recom brando d, as clini robin moran nted. Not Available [facility] [address] [facility], [place], [address], 09/15/2022 14:34:19 09/16/20 23 09/16/2023 IMAGE GUIDE D PAP AND HPV REGAR DLESS image guided Pap, HPV regardless of Pap result SEE RESULT S BELOW CASE REPOR T: Cytol ogy Gynec ologi rukhsana Repor t Case: [id number] Autho florence bajwa Provi robby: Nikunj Goncalves Colle cted: 09/16 1655 PENSIONHOLDER INFORMATION CLERK Order ing Locat ion: [place] Patho logy Recei gavin: 09/17 0046 First Screlenard n: Sarah Wiley een: Darvin Neil , CT Speci men: Angel coy Pap - Image d, Cervi x STATE MENT OF ADEQU ACY: Satis facto ry for evalu ation Trans forma tion zone compo nent prese nt FINAL DIAGN OSIS: Negat daylin for Intra epith elial Lestoshia botello or Timmy salmon (NIL) . Elect abeba gray nazario d by Darvin Neil , CT on 2022 at 1:41 PM ----- ----- ----- ----- ----- ----- ----- ----- ----- ----- ----- ----- ----- ----- ----- ----- ----- ---- HPV RESUL TS: HPV mRNA E6/E7 : No HPV mRNA Detec rosangela NOTE: This high risk HPV mRNA assay detec ts fourt een high- risk HPV types (16, 18, 31, 33, 35, 39, 45, 51, 52, 56, 58, 59, 66, 68) witho ut diffe renti ation . COMME NT: This speci men was revie wed by a Cytot echno logis t and/o r Patho logis t (as indic ated in this repor t) after evalu ation using the Thinp rep Imagi ng Syste m. [facility] INFOR MATIO N: Menst rual Statu s: LMP (if appli cable ): Clini rukhsana Histo ry/Pr eviou s Pap: Type of Neopl gianna (if appli cable ): Signi fican t Clini rukhsana Findi ngs: Other Histo ry: Hormo ivan (if appli cable ): PAP EDUCA DYLAN L NOTE: The Pap Test is a scree zbigniew test with an inher ent false negat daylin rate. Liqui d-bas ed sampl ing may decre ase, but will not elimi tree, false negat daylin resul ts. A negat daylin resul t does not precl ude the prese nce and/o r devel opmen t of disea se, since the prese nce of abnor mal cells in the sampl e depen ds on the locat ion of the lesio n and sampl ing techn ique. Kat[place] nued regul ar scree zbigniew is the best metho d of cance r preve ntion . If repor rosangela cytol ogic findi ng do not corre late with physi rukhsana and/o r histo rical findi ngs, furth er inves tigat ion is recom brando d, as clini robin moran nted. Not Available [facility] (Lab) [address], [place], [address], 09/21/2023 14:44:12 10/24/20 20 10/24/2020 MAMMO , scree zbigniew, bilat eral No observ ation record ed. [facility] [address], [place], [address], 10/25/2020 16:17:38 12/04/19 23 12/04/2022 MAMMO , scree zbigniew, bilat eral No observ ation record ed. [facility] [address], [place], [address], 09/22/2023 12:40:42 Result Notes None recorded. Problems Name Problem SNOMED Code Status Onset Date Resolution Date Notes Provider Name and Address Organization Details Recorded Time SNOMED CT Concept Completed 201808/21/2021 Encntr for data entry coordinator exam (general) (routine) w/o abn findings;R ecorded Elsewhere: No Locatio n: [facility] Aracely rce: EHR Chroni c: N Practice ID: 0001 Bob hayes Time: 10:30:00 AM Adele Brantley [facility] 15:45:55 Specializ ed medical examinati on Completed 201008/21/2021 Routine gynecologi rukhsana examinatio n;Practice ID: 0001 Adelejhony Brantley [facility] 15:45:57 Screening for malignant neoplasm of cervix Completed 201008/21/2021 Pap Smear;Prac wilfredo ID: 0001 Adelejohny [facility]ley [facility] 15:45:49 Screening for malignant neoplasm of colon Completed 201008/21/2021 Special screening for malignant neoplasms, colon;Prac wilfredo ID: 0001 Adele [facility] 15:45:51 Screening for malignant neoplasm of rectum Completed 201108/21/2021 Screening for malignant neoplasms of the rectum;Pra ctice ID: 0001 Adele [facility] 15:45:[address] Concept Completed 201808/21/2021 Encntr for general adult medical exam w/o abnormal findings;R ecorded Elsewhere: No Locatio n: [facility] Aracely rce: EHR Chroni c: N Practice ID: 0001 Billa ble Time: 10:30:00 AM Adele Brantley [facility] 15:45:54 Micturiti on finding Completed 201608/21/2021 Urinary incontinen ce;Recorde d Elsewhere: No Locatio n: [facility] Aracely rce: EHR Chroni c: N Practice ID: 0001 Billa ble Time: 11:30:00 AM Adele Brantley [facility] 15:45:47 Problem Notes None recorded. Procedures Surgical History Date Name Laterality Status Provider Name and Address Organization Details Recorded Time 12/04/19 23 Date of Last Mammogram completed [facility] 09/16/2023 12:20:01 09/09/20 22 Date of Last Pap Smear completed [facility] 09/16/2023 12:18:35 08/25/20 20 Date of Last Colonoscopy completed [facility] 08/22/2021 13:35:56 Other completed [facility] 08/22/2021 13:36:03 mammography and biopsy of left breast completed [facility] 08/01/2020 11:03:02 Tonsillectomy completed [facility] 08/01/2020 11:03:07 LEEP completed [facility] 08/01/2020 11:03:12 Imaging Results Imaging Date Name Status LastModified by Organiz ation Details LastModified Time 10/24/2020 MAMMO, screening, bilateral completed [facility] [address] [facility], [place], [address], 10/25/2020 16:17:38 12/04/2022 MAMMO, screening, bilateral completed [facility] [address] [address], [place], [address], 09/22/2023 12:40:42 Procedure Notes None recorded. Medical Equipment None Reported. Allergies No known drug allergies Medications Name Sig Start Date Stop Date Status Note LastModified by Organization Details LastModified Time clobetaso l 0.05 % topical cream apply by topical route every day a thin layer to the affected area(s) 03/16 completed Prescrib ed Elsewher e: No [facility] By: apolonia lyn DateTime : 03/11/20 10:30:00 AM Not Available Not Available Not Available sulfameth oxazole 800 mg-trimet hoprim 160 mg tablet TAKE 1 TABLET BY MOUTH TWICE DAILY FOR 10 DAYS 08/21 completed Not Available Not Available Not Available nystatin- triamcino lone 100,000 unit/gram -0.1 % topical ointment APPLY TOPICALL Y TO THE AFFECTED AREA TWICE DAILY NEEDED active Not Available Not Available No t Available terbinafi ne HCl 250 mg tablet 08/22 completed Not Available Not Available Not Available cephalexi n 500 mg capsule 08/21 completed Not Available Not Available Not Available triamcino lone acetonide 0.1 % topical ointment APPLY A THIN LAYER TO THE AFFECTED AREA(S) BY TOPICAL ROUTE 1-2 TIMES PER DAY PRN 09/09 completed Not Available Not Available Not Available halobetas ol propionat e 0.05 % topical cream apply by topical route every day a thin layer to the vulva area 08/22 completed Prescrib ed Elsewher e: No Locat ion: [facility] odify By: apolonia lyn DateTime : 03/16/20 11:26:07 AM Not Available Not Available Not Available piroxicam 20 mg capsule TAKE 1 CAPSULE BY MOUTH EVERY DAY WITH FOOD 09/09 completed Not Available Not Available Not Available One Daily tablet take 1 tablet by oral route every day with food 03/11 completed Prescrib ed Elsewher e: Yes Loca tion: [facility] M odify By: arslan pedro DateTime : 03/11/20 10:30:00 AM Not Available Not Available Not Available itraconaz ole 100 mg capsule TAKE 2 CAPSULES BY MOUTH TWICE DAILY FOR 1 WEEK OUT OF THE MONTH FOR 3 MONTHS 09/16 completed Not Available Not Available Not Available halobetas ol propionat e 08/01 completed Not Available Not Available Not Available One Daily 08/01 completed Not Available Not Available Not Available Suprep Bowel Prep Kit 17.5 gram-3.13 gram-1.6 gram oral solution MIX AND DRINK UTD 08/21 completed Not Available Not Available Not Available One Daily For Women 18 mg-0.4 mg tablet 2018 active Prescrib ed Elsewher e: Yes Loca tion: [facility] M odify By: arslan pedro DateTime : 03/11/20 10:30:00 AM Not Available Not Available Not Available Paxlovid 300 mg (150 mg x 2)-100 mg tablets in a dose pack FOLLOW PACKAGE DIRECTIO NS 09/09 completed Not Available Not Available Not Available Vitals Date Recorded Body height Body mass index (BMI) Body weight Systolic blood pressure Diastolic blood pressure Provider Name and Address Organization Details Last Updated DateTime 08/22/2021 163.2 cm 19.9 kg/m2 81842.31 g 119 mm[Hg] 73 mm[Hg] [facility] 13:35:41 Date Recorded Body height Body weight Systolic blood pressure Diastolic blood pressure Provider Name and Address Organization Details Last Updated DateTime 09/09/2022 165.1 cm 77541.27 g 120 mm[Hg] 72 mm[Hg] [facility] 09/09/2022 13:00:15 Date Recorded Body height Body mass index (BMI) Body weight Systolic blood pressure Diastolic blood pressure Provider Name and Address Organization Details Last Updated DateTime 09/16/2023 165.1 cm 20.5 kg/m2 02297.86 g 123 mm[Hg] 75 mm[Hg] Nataliya Fidencio [facility] 3 12:41:16 Date Recorded Body height Body mass index (BMI) Body weight Systolic blood pressure Diastolic blood pressure Provider Name and Address Organization Details Last Updated DateTime 08/01/2020 167.64 cm 19 kg/m2 67066.9 g 106 mm[Hg] 65 mm[Hg] Kathy Patel [facility] 0 11:06:33 Social History Question Answer Notes LastModified by Organizat ion Details LastModified Time Tobacco Smoking Status Former Smoker Sonal Rao zay [facility] 09/16/2023 12:36:09 Do You Have An Advance Directive? No Information not available 08/22/2021 What Is Your Level Of Alcohol Consumption? Occasional Information not available 08/22/2021 How Many Years Have You Consumed Alcohol? 1 Information not available 08/22/2021 Are You Blind Or Do You Have Difficulty Seeing? No Information not available 08/22/2021 What Is Your Level Of Caffeine Consumption? Occasional Information not available 08/22/2021 In The 14 Days Before Symptom Onset, Have You Had Close Contact With A Laboratory-confir med COVID-19 While That Case Was Ill? No Information not available 08/22/2021 In The 14 Days Before Symptom Onset, Have You Had Close Contact With A Person Who Is Under Investigation For COVID-19 While That Person Was Ill? No Information not available 08/22/2021 Have You Been To An Area Known To Be High Risk For COVID-19? No Information not available 08/22/2021 Are You Deaf Or Do You Have Serious Difficulty Hearing? No Information not available 08/22/2021 What Type Of Diet Are You Following? REGULAR Information not available 08/22/2021 What Is The Highest Grade Or Level Of School You Have Completed Or The Highest Degree You Have Received? 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 Yes Information not available 08/22/2021 Do You Use Protection During Sex? No Information not available 08/22/2021 Do You Use Your Seat Belt Or Car Seat Routinely? Yes Information not available 08/22/2021 Do You Have Smoke And Carbon Monoxide Detectors In Your Home? Yes Information not available 08/22/2021 How Much Tobacco Do You Smoke? No Information not available 08/22/2021 Do You Feel Stressed (tense, Restless, Nervous, Or Anxious, Or Unable To Sleep At Night)? [id number] Information not available 08/22/2021 Do You Use Any Illicit Or Recreational Drugs? No Information not available 08/22/2021 Do You Use Sunscreen Routinely? Yes Information not available 08/22/2021 Have You Used IV Drugs? No Information not available 08/22/2021 Sex: Female Functional Status Question Answer Note LastModified by Organizat ion Details LastModified Time Do you have difficulty walking or climbing stairs? No [email or web address] Information not available 09/16/2023 Are you able to walk? YESWOREST Information not available 08/22/2021 Are you able to care for yourself? Yes Information not available 09/16/2023 Do you have difficulty dressing or bathing? No Information not available 09/16/2023 What is your exercise level? Heavy Information not available 08/22/2021 Mental Status None recorded. Family History Relationship Description Onset Age of this Age Resolved Age Notes LastModified by Organization Details LastModified Time Maternal Uncle Coronary arterioscler osis [email or web address] Not available 2019 11:02:39 Paternal Grandfather Malignant neoplasm of bone [email or web address] Not available 2019 11:02:50 Medical History Condition Response Other N Blood Transfusion N Dermatologic Disorders N Gestational Diabetes N Anxiety Disorder N Autoimmune disease N Arthritis N Polyps N Infertility N Acid Reflux (GERD) N Cancer N Varicosities N Stroke N Neurologic/Epilepsy N Fibromyalgia N Headaches N Kidney Disease N Heart Problems N Kidney or Bladder Problems N Eating Disorder N Art (IVF or FET) N Hepatitis/Liver Disease N Urinary Tract Infection N Asthma N Trauma/Violence N Thrombophilias N Allergies (Food, seasonal, environmental ) N Breast Cancer N Drug/Latex Allergies/Reactions N Lung Disease N Defects or Inherited Disease N Breast Problem N Hematologic disorders N Anesthesia Complications N History of STI N Deep Vein Thrombosis N Polycystic ovary syndrome N History of abnormal pap N Endometriosis N High Cholesterol N Thyroid Problems N GI Problems N Anemia N Psychiatric Illness N Ovarian Cancer N Diabetes N Pulmonary (TB, Asthma) N Eczema N Abuse/Domestic Violence N Depression/ depression N Heart Disease N Pre-Eclampsia N Hypertension N Osteoporosis N Gynecological History Statement/Question Response Abnormal Pap N Date of Last Mammogram 12/04/2022 Flow Light Date of LMP N Was last menstrual period normal N STIs/STDs N HPV Vaccine N Duration of Flow (days) 4 12 Current Control Method Partner Vas ectomy Age at First Child 25 Are cycles usually normal Y Date of Last Colonoscopy 08/25/2020 Sexually Active? Y Menses Monthly N Age of first menstrual cycle 12 Date of Last Pap Smear 09/09/2022 Sexual Problems? N LMP Unknown N Obstetrics History GPAL:G 3 P 0 0 0 3 Type Value Living 3 Total 3 Past Encounters Encounter ID Performer Location Encounter Start Date Encounter Closed Date Diagnosis/Indication Diagnosis SNOMED-CT Code Diagnosis ICD10 Code Diagnosis Note [id number] Sandy Rojas , [facility] [address] [address] 08/01/2020 10:58:31 08/01/2020 13:04:56 Gynecologic examination 14367146 Z01.419 Suggested Calcium with Vitamin D 1200-1500m g daily. Patient advised to get an annual flu shot in the fall and she could obtain at [facility] or [facility] clinic. Also to obtain TDap vaccinatio n if you have not had one in the last 10 years. Recommend yearly mammograms . Encouraged monthly self breast exams. Encourage safe sexual practices, to use condoms and limit partners if not already in a monogamous relationsh ip. Engage in daily exercise of low impact aerobic exercise 45-60 minutes 4-5 times weekly. Avoid tobacco and illicit drugs as well as using moderation with alcohol intake less than 1-2 8 oz beverages daily. This lifestyle behavior pattern will lead to less health conditions and longer life span. If BMI greater than 25 weight watchers or dietary consult advised. All questions have been answered. Patient appears to understand informatio n, but if you have any questions please call or respond to this email. Ointment sent for prn vaginitis not related to infection. Sent triamcinol one which is a milder, friendlier steriod ointment than previous Rx; stronger steriods can thin already thinning menopausal skin in this area. Pap/HPV sent Mammo ordered Screening colonoscopy 44 2934612 Z12.11 Refer started [id number] Sandy Rojas [facility] [address],[place] [address] 08/22/2021 13:21:50 08/22/2021 14:16:03 Gynecologic examination 91351714 Z01.419 Suggested Calcium with Vitamin D 1200-1500m g daily. Patient advised to get an annual flu shot in the fall and she could obtain at [facility] or [facility] care clinic. Also to obtain TDap vaccinatio n if you have not had one in the last 10 years. Recommend yearly mammograms . Encouraged monthly self breast exams. Encourage safe sexual practices, to use condoms and limit partners if not already in a monogamous relationsh ip. Engage in daily exercise of low impact aerobic exercise 45-60 minutes 4-5 times weekly. Avoid tobacco and illicit drugs as well as using moderation with alcohol intake less than 1-2 8 oz beverages daily. This lifestyle behavior pattern will lead to less health conditions and longer life span. If BMI greater than 25 weight watchers or dietary consult advised. All questions have been answered. Patient appears to understand informatio n, but if you have any questions please call or respond to this email. Pap/HPV Mammo orderedCol on-UTD (will check on date) Adult heal th examination 683606763 Z00.00 Recommend the menopause manifesto by Dr. Laina Mitchell Genital li blakely sclerosus 900044399 L90.0 Doing wellRF sentBarely uses ointment and is on an prn basis. [id number] Sandy Rojas [facility] [address],[facility] [place] [address] 09/09/2022 12:45:42 09/09/2022 13:31:22 Gynecologic examination 39214500 Z01.419 Suggested Calcium with Vitamin D 1200-1500m g daily. Patient advised to get an annual flu shot in the fall and she could obtain at [facility] or [facility] care clinic. Also to obtain TDap vaccinatio n if you have not had one in the last 10 years. Recommend yearly mammograms . Encouraged monthly self breast exams. Encourage safe sexual practices, to use condoms and limit partners if not already in a monogamous relationsh ip. Engage in daily exercise of low impact aerobic exercise 45-60 minutes 4-5 times weekly. Avoid tobacco and illicit drugs as well as using moderation with alcohol intake less than 1-2 8 oz beverages daily. This lifestyle behavior pattern will lead to less health conditions and longer life span. If BMI greater than 25 weight watchers or dietary consult advised. All questions have been answered. Patient appears to understand informatio n, but if you have any questions please call or respond to this email.Pap/ hpv sent STD Screen declined Genetic Screen discussed Colon Screen PCP Dexa Screen na Routine Labs PCPMammo ordered [id number] Sandy Rojas [facility] [address] [address] 09/16/2023 12:35:44 09/16/2023 14:12:16 Gynecologic examination [id number] Z01.419 Z11.51 Suggested Calcium with Vitamin D 1200-1500m g daily. Patient advised to get an annual flu shot in the fall and she could obtain at [facility] or [facility] clinic. Also to obtain TDap vaccinatio n if you have not had one in the last 10 years. Recommend yearly mammograms . Encouraged monthly self breast exams. Encourage safe sexual practices, to use condoms and limit partners if not already in a monogamous relationsh ip. Engage in daily exercise of low impact aerobic exercise 45-60 minutes 4-5 times weekly. Avoid tobacco and illicit drugs as well as using moderation with alcohol intake less than 1-2 8 oz beverages daily. This lifestyle behavior pattern will lead to less health conditions and longer life span. If BMI greater than 25 weight watchers or dietary consult advised. All questions have been answered. Patient appears to understand informatio n, but if you have any questions please call or respond to this email.Pap/ hpv sentSTD Screen declinedGe netic Screen discussedC olon Screen PCPDexa Screen naRoutine Labs PCPMammo ordered Screening mammography 24 045312 Z12.31 Adult heal th examination 917880257 Z00.00 Vitamin D deficiency 347 29155 E55.9 Genital li blakely sclerosus 863467493 L90.0 Doing wellRF sentBarely uses ointment and is on an prn basis. Hormone re placement therapy 614004109 Z79.890 We discussed Menopausal Hormone therapy (MHT) for women with intact uterus with the goals of reliving vaso-motor sx's using estrogen/p rogestin therapy (EPT) using lowest doses for shortest duration in women 40-59yo. Contraindi cations include: Hx of DVT or thrombolic events, High cholestero l, Hx of breast cancer, known CHD, active liver disease, unexplaine d vag bleeding, high risk endometria l cancer, TIA. Side effects can include but are not limited to: Irregular vag bleeding,, breast tenderness , nausea, weight changes, libido changes, nausea. Adverse Rxn: Elevated BP migraine w/ visual changes, breast cancer dx, MD/stroke, DVT/PE, Endometria l cancer. Please contact office with any new or worsening side effects or adverse reactions. Or if a medical emergency please go to nearest ED/[facility] care for further evaluation . FREDDY H/O's given for additional home review.She has chosen to use Pills (estradiol 1mg/Promet rium 100mg daily) if decides to move forward with this therapy.Sh lenard will contact us if she does want to pursue.She will need a 3mos f/u med check & Rx will need to be sent. Health Concerns Section Related Observation LastModified by Organization Detai ls LastModified Time None Recorded Concern Status LastModified by Organization Details LastModified Time None Recorded Advance Directives Directive N: Payers Encounter Date Sequence Insurance Name Policy Number Policy Milian Covered Member ID Milian Member ID Guarantor Name 08/01/2020 1 [facility] [place] [id number] Marlin Reyes 08/22/2021 1 [facility] [place] [id number] Marlin Reyes 09/09/2022 1 [facility] [place] Reyes [id number] Marlin Reyes 09/16/2023 1 [facility] [place] Reyes [id number] Marlin Reyes Notes Date Note Type Note Provider Name and Address Organization Details Recorded Time 08/01/2020 text/html Annual GYNReport ed bypatient.History:n o gynecologic complaints Menstrual cycle:Normal menses Urinary symptoms:No hematuria; No incontinence Vulva:No genital lesion Vagina:Normal vaginal discharge Breast:No breast pain; No breast lump; No nipple discharge Current Contraception:Satis fied with current contraception; Monogamous relationship; postmenopause Sexual complaints:No sexual complaints; No pain during intercourse; Normal libido Menopausal Symptoms:No menopausal symptoms; Normal vaginal lubrication Psychological symptoms:No depression; No anxiety; No PMDD Preventive measures:Encourage self breast examination; Encourage regular exercise; Encourage no tobacco use; Encourage regular mammograms starting age 40; History of abnormal pap smear/cervical dysplasia; Needs to schedule mammogram; Needs to schedule colon[facility] [address], [place], [address], [facility] 08/01/2020 11:39:07 08/22/2021 text/html Annual GYNReport ed bypatient.Menstrual cycle:Normal menses Urinary symptoms:No hematuria; No incontinence Vulva:No genital lesion Vagina:Normal vaginal discharge Breast:No breast pain; No breast lump; No nipple discharge Current Contraception:Satis fied with current contraception; Monogamous relationship; Partner had vasectomy Sexual complaints:No sexual complaints; No pain during intercourse; Normal libido Menopausal Symptoms:No menopausal symptoms; Normal vaginal lubrication Psychological symptoms:No depression; No anxiety; No PMDD Preventive measures:Encourage self breast examination; Encourage regular exercise; Encourage no tobacco use; Encourage regular mammograms starting age 40; Followed with Q3 year pap smear and high risk HPV typing; Needs to schedule mammogram; Up to date on colonoscopy screening CARMELO Baldwin [address], [place], [address], [facility] 08/22/2021 14:02:40 09/09/2022 text/html Annual Sat Act Instructor Post-MenopausalRepo rted bypatient.Menopausa l Symptoms:no menopausal symptoms; normal vaginal lubrication Vaginal Bleeding:history of menopause having occurred; no history of post menopausal bleeding Urinary Symptoms:no hematuria; no incontinence; no nocturia; no urinary frequency Vulva:no genital lesion; no vulvar atrophy Vagina:normal vaginal discharge; no vaginal atrophy Breast:no breast lump; no nipple discharge; no breast pain Sexual Complaints:no sexual complaints Psychological Symptoms:no depression; no anxiety Preventive Measures:encourage regular mammograms starting age 40; encourage self breast examination; encourage regular exercise; encourage no tobacco use; needs to schedule mammogram; history of recent colon[facility] [address], [place], [address], [facility] 09/09/2022 13:20:43 09/16/2023 text/html Annual Sat Act Instructor Post-MenopausalRepo rted bypatient.Menopausa l Symptoms:no menopausal symptoms; normal vaginal lubrication Vaginal Bleeding:history of menopause having occurred; no history of post menopausal bleeding Urinary Symptoms:no hematuria; no incontinence; no nocturia; no urinary frequency Vulva:no genital lesion; no vulvar atrophy Vagina:normal vaginal discharge; no vaginal atrophy Breast:no breast lump; no nipple discharge; no breast pain Sexual Complaints:no sexual complaints Psychological Symptoms:no depression; no anxiety Preventive Measures:encourage regular mammograms starting age 40; encourage self breast examination; encourage regular exercise; encourage no tobacco use; needs to schedule mammogram; history of recent colonoscopy CARMELO Baldwin [address], [place], [address], [facility] 09/16/2023 14:11:15 OBGyn Episode Ob Episode Information Episode Created Date Number of Fetuses Patient Bloodtype Patient rh Status Prepregnancy Weight lbs Domestic Partner Domestic Partner Phone Father Name [employer] Consultant Status 08/01/20 20 1 CLOSED Fetus Data First Name Last Name Admitted to NICU Weight (g) Sex Living Outcome Pediatric Complications Fetus ID Race Codes Race Delivery Type 4565 Vaginal Delivery Byron Calculation Initial Byron Date Initial Exam Date Initial Exam Provider Initial Ultrasound Date Last Menstrual Period Date Ultra Sound Weeks Gestation 0 Eighteen To Twenty Week Byron Update Ultra Sound Date Fundal Height At Umbil Quickening Date Ultra Sound Latest Weeks Gestation Final Byron Confirmed By Final Byron Confirmed Date Final Byron Date Ultra Sound Latest Days Gestation 0 0 Menstrual History Last Menstrual Date Menses Monthly On Bcp Conception Prior Menses Frequency Hcg Plus Date Menarche Onset Age Delivery Information Delivery Date Delivery Type Labor Anesthesia Weeks Gestation Incision Type Labor Labor Length Hrs Delivered By Post Complications Tubal Sterilization Discharge Date Comments 8 Discharge Information Feeding Method Contraceptive Method Maternal HG B and HCT Levels Ob Episode Information Episode Created Date Number of Fetuses Patient Bloodtype Patient rh Status Prepregnancy Weight lbs Domestic Partner Domestic Partner Phone Father Name [employer] Consultant Status 08/01/20 1 CLOSED Fetus Data First Name Last Name Admitted to NICU Weight (g) Sex Living Outcome Pediatric Complications Fetus ID Race Codes Race Delivery Type 4566 Vaginal Delivery Byron Calculation Initial Byron Date Initial Exam Date Initial Exam Provider Initial Ultrasound Date Last Menstrual Period Date Ultra Sound Weeks Gestation 0 Eighteen To Twenty Week Byron Update Ultra Sound Date Fundal Height At Umbil Quickening Date Ultra Sound Latest Weeks Gestation Final Byron Confirmed By Final Byron Confirmed Date Final Byron Date Ultra Sound Latest Days Gestation 0 0 Menstrual History Last Menstrual Date Menses Monthly On Bcp Conception Prior Menses Frequency Hcg Plus Date Menarche Onset Age Delivery Information Delivery Date Delivery Type Labor Anesthesia Weeks Gestation Incision Type Labor Labor Length Hrs Delivered By Post Complications Tubal Sterilization Discharge Date Comments 5 Discharge Information Feeding Method Contraceptive Method Maternal HG B and HCT Levels Ob Episode Information Episode Created Date Number of Fetuses Patient Bloodtype Patient rh Status Prepregnancy Weight lbs Domestic Partner Domestic Partner Phone Father Name [employer] Consultant Status 08/01/20 1 CLOSED Fetus Data First Name Last Name Admitted to NICU Weight (g) Sex Living Outcome Pediatric Complications Fetus ID Race Codes Race Delivery Type 4564 Vaginal Delivery Byron Calculation Initial Byron Date Initial Exam Date Initial Exam Provider Initial Ultrasound Date Last Menstrual Period Date Ultra Sound Weeks Gestation 0 Eighteen To Twenty Week Byron Update Ultra Sound Date Fundal Height At Umbil Quickening Date Ultra Sound Latest Weeks Gestation Final Byron Confirmed By Final Byron Confirmed Date Final Byron Date Ultra Sound Latest Days Gestation 0 0 Menstrual History Last Menstrual Date Menses Monthly On Bcp Conception Prior Menses Frequency Hcg Plus Date Menarche Onset Age Delivery Information Delivery Date Delivery Type Labor Anesthesia Weeks Gestation Incision Type Labor Labor Length Hrs Delivered By Post Complications Tubal Sterilization Discharge Date Comments 0 Discharge Information Feeding Method Contraceptive Method Maternal HG B and HCT Levels
--- OUTSIDE RECORDS SUMMARY | 2025-03-18 15:57 | XMS_ITS | Referral Summary ---
Author Organization [facility] [place] [address] Address [address] [place] [address] Care Team Providers Care Manager Title Name Role Phone Delon Coats MD Primary Care Provider [phone] Allergies No known active allergies Medications multivitamin-ca [...] chest pain 06/25/2020 SVT (supraventricular tachycardia) 06/25/2020 Social History Tobacco Use Types Packs/Day Years [...] on file Legal Sex Female 7:44 AM CONSULTING [facility] Gender Identity Not on file Sexual Orientation Not on file Last Filed Vital Signs Vital Sign Reading Time Taken Comments Blood Pressure 121/71 09/28/2020 11:16 AM CONSULTING [facility]UARY Pulse 69 09/28/2020 11:16 AM CONSULTING ACTUARY Temperature 36.7 C (98.1 F) 09/28/2020 11:16 AM CONSULTING ACTUARY Respiratory Rate 14 08/31/2020 5:10 PM CDT Oxygen Saturation 100% 09/28/2020 11: 16 AM CONSULTING ACTUARY Inhaled Oxygen Concentration - - Weight 54.3 kg (119 lb 12.8 oz) 020 11:16 AM CONSULTING ACTUARY Height 167.6 cm (5' 6 ) 09/28/2020 11:1 6 AM CONSULTING ACTUARY Body Mass Index 19.34 09/28/2020 11:16 AM CONSULTING ACTUARY Plan of Treatment Not on file Medical Devices Implanted Type Area [employer]ing Services Advisor Device Identifier Shelf Expiration Date Model / Serial / Lot [employer] [id number] System 6-12fr Mvp Venous Closure Vascade - [id number] Implanted:Qty: 1 on 08/31/2020 by Rajni Muniz MD at [facility] [employer] 06/28/2022 800-612C-1 [id number] / / [id number] Description:VASCADE MVP [employer] [id number] Device Closure Vascade Od5 Fr Femoral Artery - [id number] Implanted:Qty: 1 on 08/31/2020 by Rajni Muniz MD at [facility] [employer] 09/27/2021 700-500DX- 05U / / [id number] Description:VASCADE [employer] [id number] Device Closure Vascade Od5 Fr Femoral Artery - [id number] Implanted:Qty: 1 on 08/31/2020 by Rajni Muniz MD at [facility] [employer] 06/13/2021 700-500DX- 05U / / [id number] 25A Description:VASCADE [employer] [id number] System 6-12fr Mvp Venous Closure Vascade - [id number] Implanted:Qty: 1 on 08/31/2020 by Rajni Muniz MD at [facility] [employer] 05/22/2022 800-612C-1 0U / / [id number] Description:[place] [id number] [facility] [place] [address] [address] [place] [id number] [facility] [place] [id number] Care Teams Manager Title Relationship Specialty Start Date End Date Delon Coats MD [address] [place] [address] [place] [id number] PCP - General Family Medicine 06/18/20
== END 2025-03-18 13:55 | disposition home or self-care (01) ==
PROVIDERS: Emergency Provider Emergency Medicine; PCP Family Medicine
DX: R51.9 Headache, unspecified (principal); F43.20 Adjustment disorder, unspecified; Z20.822 Contact with and (suspected) exposure to COVID-19
CPT/HCPCS: 36415; 70450; 71045; 80053; 81001; 83690; 84443; 84484; 85025; 87086; 87636; 93005; 96361; 96374; 96375; 99284; A9270; J0780; J1200; J1885; J2060; J7030